=== PATIENT | male | born 1970 | race Caucasian/White ===

== ENCOUNTER 2021-12-04 09:28 | Day surgery (SDC) | payer OTHER ==
[2021-12-02 12:14] VITALS: BMI 35.4
[~2021-12-04 09:28] MED LIST: LACTATED RINGERS 1,000 ML IV SCH
[2021-12-04 10:13] VITALS: TEMP 98
[2021-12-04] MEDS ORDERED: LIDOCAINE 1% INJ 10MG/ML (20 ML MDV) ONE (11:03)
[2021-12-04] MEDS ORDERED: PROPOFOL 10 MG/ML 20 ML VIAL IV ONE (11:03)
--- NOTE | 2021-12-04 11:27 | P.PCN ---
Date of Procedure: 12/04/21 Procedure(s) Performed: BRIEF HISTORY: Patient is a 51-year-old pleasant white male scheduled for an elective colonoscopy as a part of screening for colon rectal neoplasia. PROCEDURE PERFORMED: Colonoscopy with biopsy. PREOPERATIVE DIAGNOSIS: Screening for colon cancer. IV sedation per Anesthesia. PROCEDURE: After informed consent was obtained, the patient, was brought into the endoscopy unit. IV sedation was administered by Anesthesia under continuous monitoring. Digital rectal examination was normal. Initially the Olympus CF-160 flexible video colonoscope was then inserted in the rectum, gradually advanced into the cecum without any difficulty. Careful examination was performed as the scope was gradually being withdrawn. Ileocecal valve and the appendiceal orifice were visualized and appeared normal. Prep was excellent. Mucosa of the cecum, ascending colon, appeared normal. In the transverse colon there was a 3-4 mm polyp that was removed by cold biopsy. Rest of the transverse colon, descending colon, sigmoid colon, and rectum appeared normal. Retroflexion was performed in the rectum and no lesions were seen. The patient tolerated the procedure well. IMPRESSION: 3-4 mm transverse colon polyp status post cold biopsy Rest of the colon appeared normal RECOMMENDATIONS: Findings of this examination were discussed with the patient as well as his family. He was advised to follow with the biopsy results and if it it is an adenoma to have a repeat colonoscopy in 5 years from now.
[2021-12-04 11:49] VITALS: BP 141/85; PULSE 87; RESP 18
== END 2021-12-04 12:15 | disposition home or self-care (01) ==
LOC: ORWHC2ENDO 09:28
PROVIDERS: ATTEND Internal Medicine Gastroenterology
DX: Z12.11 Encounter for screening for malignant neoplasm of colon (principal); D12.3 Benign neoplasm of transverse colon; I10 Essential (primary) hypertension; E78.5 Hyperlipidemia, unspecified; E66.01 Morbid (severe) obesity due to excess calories; Z68.36 Body mass index [BMI] 36.0-36.9, adult; Z90.49 Acquired absence of other specified parts of digestive tract; Z98.890 Other specified postprocedural states; Z79.899 Other long term (current) drug therapy
CPT/HCPCS: 88305; 45380; J2001; J2704

== ENCOUNTER → 2022-10-09 | Outpatient (CLI) | payer OTHER ==
--- NOTE | 2022-10-09 16:21 | P.SLEEP ---
History of Present Illness DATE: 10/09/2022 CONSULTATION/NEW PATIENT EVALUATION HISTORY OF PRESENT ILLNESS/SLEEP-WAKE EVALUATION: 52 year old gentleman had been evaluated in the sleep center for possible obstructive sleep apnea hypopnea syndrome. SLEEP SCHEDULE: Usually sleep schedule from 11 PM to 8 AM on weekdays and from 11 PM to 9 AM on weekend. FALLING ASLEEP: No problems with falling asleep, no TV in bedroom. DURING SLEEP: Patient sleeps in different positions. According to his he has loud snoring and witnessed episodes of stop breathing during the sleep. Positive history of sleep talking and sweating during the sleep. Patient wakes up from sleep up to 4 times with 4 episodes of nocturia. No history of hypnogogical hallucinations, sleep paralysis, or cataplexy. DURING THE DAY/WAKE STATE: In the morning patient wake up tired, falling asleep during the day. Positive history of irritability and depression. [place] sleepiness scale is 5. Usually patient doesn't take naps. PAST MEDICAL HISTORY: Hypertension, hyperlipidemia, gout. PAST SURGICAL HISTORY: Appendectomy, left shoulder surgery for bone problems. MEDICATIONS: Allopurinol 300 mg once a day, amlodipine 5 mg once a day, atorvastatin 10 mg once a day. SOCIAL HISTORY: Positive for smoking for about 35 pack years quit in 2006, presently smoking cigars about 1 cigar a day, alcohol consumption occasional. FAMILY HISTORY: Hypertension, heart problems, snoring. REVIEW OF SYSTEMS: Loud snoring, multiple awakenings from sleep. No fevers. No double vision. No recent chest pain. No shortness of breath. No abdominal pain. No bleeding episodes. No blood in urine. No seizure episodes. PHYSICAL EXAMINATION: GENERAL: A pleasant patient without any distress. VITAL SIGNS: BP 164/103, HR 86, RR 16, weight 265 pounds, height 5 foot 9 inches, body mass index 39.1. HEENT: PERRLA, EOMI. Evaluation of oropharynx showed tongue protrudes midline, low position of soft palate Mallampati 4. NECK: Supple. No JVD. Thyroid is not palpable. 19 inches in circumference. LUNGS: Clear to percussion and to auscultation. Good air exchange. No wheezing or rhonchi. HEART: S1, S2 regular. No murmurs, gallops or rubs. ABDOMEN: Soft and nontender. Bowel sounds are present. No organomegaly appreciated. Obese EXTREMITIES: No clubbing or cyanosis. ROTARY DRILL OPERATOR: Awake, alert, and oriented x3. Cranial nerves 2 to 7 intact. There is no fasciculation or atrophy noted. No focal deficits observed. ASSESSMENT: 1. Loud snoring, witnessed episodes of sleep apneas, multiple awakenings from sleep, extremely low position of soft palate Mallampati 4, wide neck 19 inches in circumference. Obstructive sleep apnea-hypopnea syndrome. 2. Obesity body mass index 39.1. 3. Hypertension. 4. History of gout. 5 hyperlipidemia. 6 . Status post appendectomy. 7. Status post left shoulder surgery for bone problem. PLAN: 1. Polysomnography for evaluation of patient's breathing during sleep. 2. CPAP/BiPAP titration if sleep study confirms obstructive sleep apnea- hypopnea syndrome. 3. Preferable position during sleep on the side. 4. No driving if patient feels any sleepiness. Patient is aware of civil and criminal liability for unsafe driving. 5. Sleep hygiene with regular sleep time for at least 7.5-8 hours. 6. Watching and losing weight. Thank you very much for referring this patient for consultation. Sincerely, Paulo Alberts MD, PhD, FAASM. Diplomat of [place] [employer], Sleep Medicine Board by [employer] of [facility] [place] Past Medical History Past Medical History: Hyperlipidemia, Hypertension Additional Past Medical History / Comment(s): Hx Gout. History of Any Multi-Drug Resistant Organisms: None Reported Past Surgical History: Appendectomy, Orthopedic Surgery Additional Past Surgical History / Comment(s): Shoulder surgery. Past Anesthesia/Blood Transfusion Reactions: No Reported Reaction Past Psychological History: No Psychological Hx Reported Smoking Status: Former smoker Past Alcohol Use History: Occasional Additional Past Alcohol Use History / Comment(s): Smokes cigars. Past Drug Use History: None Reported - Past Family History Mother Family Medical History: No Reported History Medications and Allergies Home Medications Medication Instructions Recorded Confirmed Type Atorvastatin [Lipitor] 10 mg PO HS 12/02/21 12/02/21 History Multivitamins, Thera [Multivitamin 1 tab PO DAILY 12/02/21 12/02/21 History (formulary)] allopurinoL [Zyloprim] 300 mg PO HS 12/02/21 12/02/21 History amLODIPine [Norvasc] 5 mg PO QAM 12/02/21 12/02/21 History lisinopriL 40 mg PO QAM 12/02/21 12/02/21 History Allergies Allergy/AdvReac Type Severity Reaction Status Date / Time No Known Allergies Allergy Verified 12/02/21 12:15 Sleep Note - Sleep Note Sleep Note: Temperature: Pulse Rate: Respiratory Rate: Blood Pressure: SpO2: Height: Weight: BMI: Neck Circumference:
== END ==
LOC: SLEEP 15:55
PROVIDERS: ATTEND Internal Medicine
DX: G47.33 Obstructive sleep apnea (adult) (pediatric) (principal); E66.9 Obesity, unspecified; Z68.39 Body mass index [BMI] 39.0-39.9, adult; I10 Essential (primary) hypertension; Z87.39 Personal history of other diseases of the musculoskeletal system and connective tissue; Z99.89 Dependence on other enabling machines and devices; E78.5 Hyperlipidemia, unspecified; Z90.89 Acquired absence of other organs; Z96.612 Presence of left artificial shoulder joint; Z79.899 Other long term (current) drug therapy

== ENCOUNTER → 2023-01-28 | Outpatient (CLI) | payer OTHER ==
--- NOTE | 2023-01-29 07:57 | MR ---
EXAMINATION TYPE: MR shoulder RT wo con DATE OF EXAM: 01/28/2023 COMPARISON: Outside right shoulder x-ray January 07, 2023 HISTORY: Right shoulder pain, decreased ROM x 6 mos. Hx surgery 14 yrs ago. TECHNIQUE: Multiplanar, multisequence imaging of the right shoulder is performed without contrast. FINDINGS: Rotator Cuff: Increased signal in supraspinatus and infraspinatus tendons. There is partial tearing i nvolving anterior fibers of the supraspinatus tendon measured 9 mm AP diameter sagittal image 6. Incr eased signal and surrounding fluid subscapularis tendon. Rotator cuff muscle bulk is preserved. Acromioclavicular Joint: Evidence of prior distal clavicular resection. Type II downsloping acromion redemonstrated. Glenohumeral Joint: Small joint effusion. No significant spurring. Labrum: The labrum appears grossly intact given limitation of non-arthrogram study. Biceps Tendon: The long head of biceps is in normal location within bicipital groove. Increased sign al intracapsular portion. Bone marrow signal: Some subchondral cystic change involving the humeral head. Other: No additional significant abnormality is appreciated. IMPRESSION: 1. Evidence of distal clavicular resection but a type II downsloping acromion is noted. 2. Tendinosis of the rotator cuff tendons with partial tearing of the supraspinatus tendon. 3. Tendinosis of the long head of biceps tendon.
== END | disposition home or self-care (01) ==
LOC: RADMRIMAIN 08:53
DX: M75.111 Incomplete rotator cuff tear or rupture of right shoulder, not specified as traumatic (principal); M67.813 Other specified disorders of tendon, right shoulder

== ENCOUNTER → 2023-02-18 | Outpatient (CLI) | payer OTHER ==
--- NOTE | 2023-02-18 13:20 | P.PN ---
Subjective DATE: 02/18/2023 FOLLOW UP VISIT. Patient with obstructive sleep apnea hypopnea syndrome return to sleep center for follow-up visit. Recently patient had sleep study which documented obstructive sleep apnea hypopnea syndrome. Patient was initiated on PAP therapy and today is first visit after treatment was started. Patient was able to use PAP equipment every night for the whole night. Patient feels significantly better after starting to use CPAP treatment. I discussed results of sleep studies with patient in details. The patient does not have significant problems with the mask, PAP pressure and humidification. [place] sleepiness scale is 4, which is normal. I checked information from PAP unit. BPAP unit pressure 20/16 cm H2O. Usage is 100 % for more then 4 hours, average 8.9 hours per night. Leak is 34 l/m, which is in acceptable range. Apnea Hypopnea Index is 1.5, which is normal. MEDICATIONS:1. Allopurinol 300 mg once a day 2. Amlodipine 5 mg once a day 3. Atorvastatin 10 mg once a day During physical exam: GENERAL: A pleasant patient without any distress. VITAL SIGNS: BP 154/93, HR 72, RR 18, weight 258.4, temperature 98.1, oxygen saturation at room air 99. HEENT: PERRLA, EOMI.low position of soft palate, Mallapati 4 . NECK: Supple. No JVD. LUNGS: Clear to percussion and to auscultation. Good air exchange. No wheezing or rhonchi. HEART: S1, S2 regular. ABDOMEN: Soft and nontender. Obese EXTREMITIES: No clubbing or cyanosis. DRUPAL DEVELOPER: Awake, alert, and oriented x3. No focal deficit. Impressions: 1. Obstructive sleep apnea-hypopnea syndrome. Patient demonstrated great compliance with treatment, benefiting from treatment. 2. Obesity. 3. History of gout. 4. Hypertension. 5. Hyperlipidemia. 6. Status post appendectomy. 7. Status post left shoulder surgery for bone problems. Plan: 1. Continue using PAP equipment every night for the whole night. 2. To change air filter at least 1-2 times per month. 3. PAP unit should stay lower then position of the head. 4. Advised patient to remove all remaining water from humidifier canister daily and make it dry after each usage. Refill canister with fresh distilled water before each usage. 5. Sleep hygiene with regular time in bed for at least 8 hours. 6. Precautions related to driving. No driving if feel any sleepiness. 7. I will maintain prescription for PAP supplies including mask, tube, filters. 8. Follow up visit in 6 months or earlier if patient has any problems. 9. Watching and losing weight. Thank you very much for allowing me to participate in the management of your patient. Paulo Alberts MD, PhD, FAASM. Diplomat of [place] [employer], Sleep Medicine Board by [place] [employer] Dialysis Biomed Technician of [facility] [place]
== END ==
LOC: 3 N SLEEP 10:43
PROVIDERS: ATTEND Internal Medicine
DX: G47.33 Obstructive sleep apnea (adult) (pediatric) (principal); E66.9 Obesity, unspecified; M10.9 Gout, unspecified; E78.5 Hyperlipidemia, unspecified; I10 Essential (primary) hypertension; Z98.890 Other specified postprocedural states; Z96.612 Presence of left artificial shoulder joint; Z99.89 Dependence on other enabling machines and devices
CPT/HCPCS: 99212

== ENCOUNTER 2023-04-01 11:06 | Day surgery (SDC) | payer OTHER ==
[2023-03-27 12:35] VITALS: BMI 36.6
--- NOTE | 2023-04-01 07:58 | P.HPOR ---
History of Present Illness H&P Date: 04/01/23 Chief Complaint: Right shoulder pain The patient is a 52-year-old left-hand dominant male who presents with right shoulder pain for the past 7 months. He's having pain with overhead activity and at night. He has intermittent popping. He's tried previous stretching exercises along with injections with only partial temporary relief. He notes daily pain that is limiting him. Review of Systems As per HPI Past Medical History Past Medical History: Hyperlipidemia, Hypertension, Osteoarthritis (OA) Additional Past Medical History / Comment(s): Hx Gout. History of Any Multi-Drug Resistant Organisms: None Reported Past Surgical History: Appendectomy, Orthopedic Surgery Additional Past Surgical History / Comment(s): RT Shoulder ,COLONOSCOPY Past Anesthesia/Blood Transfusion Reactions: No Reported Reaction Smoking Status: Former smoker - Past Family History Mother Family Medical History: No Reported History Medications and Allergies Home Medications Medication Instructions Recorded Confirmed Type Atorvastatin [Lipitor] 10 mg PO HS 12/02/21 12/02/21 History Multivitamins, Thera [Multivitamin 1 tab PO DAILY 12/02/21 12/02/21 History (formulary)] allopurinoL [Zyloprim] 300 mg PO HS 12/02/21 12/02/21 History amLODIPine [Norvasc] 5 mg PO QAM 12/02/21 12/02/21 History lisinopriL 40 mg PO QAM 12/02/21 12/02/21 History Allergies Allergy/AdvReac Type Severity Reaction Status Date / Time No Known Allergies Allergy Verified 03/27/23 12:23 Physical Examination - Shoulder right Tenderness with palpation: anterior Pain: with abduction, with forward flexion ROM: forward flexion: 120 degrees ROM: internal rotation: lower lumbar ROM: external rotation: 40 degrees Crepitus with motion: Yes Strength: abduction: 4/5 Strength: external rotation: 5/5 Tests: internal impingement tests: positive, external impingment tests: positive Results The patient is a well-developed well-nourished male approximately 5 foot 10, 262 pounds of endomorphic habitus. HEENT exam is nonfocal, neck is supple. He's tender about the right shoulder anterior subacromial space. Moderate crepitus is noted. Passive forward elevation is 145. Weber, Neer's sign, and speed test are positive. His distal neurovascular appears intact the right upper extremity. - Diagnostic results Shoulder MRI: image reviewed (MRI of the right shoulder shows evidence of a partial-thickness tear involving the supraspinatus along with bicipital tendinosis.) Assessment and Plan Assessment: Right shoulder impingement/partial thickness rotator cuff tear/proximal bicipital tendinosis Plan: I talked with the patient length regarding his condition along treatment options. At this point is having significant pain and weakness despite conservative measures. After thorough discussion he opted to proceed with surgery. We'll proceed with arthroscopic evaluation right shoulder with probable subacromial decompression, rotator cuff repair versus debridement, possible biceps tenotomy versus tenodesis. We will likely perform that as an outpatient procedure. Risks and benefits were discussed at length in layman's terms.
[~2023-04-01 11:06] MED LIST changes: +DEXAMETHASONE SOD PHOSPHATE 4 MG/ML 1 ML VIAL IV ONE; +LIDOCAINE 1% (10MG/ML) FOR IV START INTRADERMA PRN; +ONDANSETRON 4 MG/2 ML VIAL IVP ONE; +SCOPOLAMINE 1 MG/72 HR PATCH TRANSDERM ONE; +droPERidol 5 MG/2 ML VIAL IVP ONE
[2023-04-01] MEDS ORDERED: MIDAZOLAM 2 MG/2 ML VIAL IVP ONE (12:26)
[2023-04-01] MEDS ORDERED: fentaNYL (PF) 50 MCG/1 ML VIAL IVP ONE (12:26)
[2023-04-01] MEDS ORDERED: SUCCINYLCHOLINE CHLORIDE 200 MG/10 ML VIAL IV ONE (12:51)
[2023-04-01] MEDS ORDERED: fentaNYL (PF) 50 MCG/ML 2 ML AMP ONE (12:51)
[2023-04-01] MEDS ORDERED: LIDOCAINE 2% INJ 20 MG/ML (2 ML VIAL) ONE (12:51)
[2023-04-01] MEDS ORDERED: PROPOFOL 10 MG/ML 20 ML VIAL IV ONE (12:51)
[2023-04-01] MEDS ORDERED: MIDAZOLAM 2 MG/2 ML VIAL ONE (12:51)
[2023-04-01] MEDS ORDERED: HYDROmorphone (PF) 1 MG/ML ONE (12:51)
[2023-04-01] MEDS ORDERED: ROPIVACAINE 5 MG/ML 30 ML VIAL ONE (12:51)
[2023-04-01] MEDS ORDERED: PHENYLEPHRINE 10 MG/ML VIAL ONE (12:51)
[2023-04-01] MEDS ORDERED: NEOSTIGMINE 1 MG/ML 10 ML VIAL ONE (12:51)
[2023-04-01] MEDS ORDERED: ROCURONIUM 10 MG/ML (5 ML VIAL) IV ONE (12:51)
[2023-04-01] MEDS ORDERED: GLYCOPYRROLATE 0.2 MG/ML 2 ML VIAL ONE (12:51)
--- NOTE | 2023-04-01 13:53 | P.ANPRN ---
Procedure Note - Anesthesia - Nerve Block Performed Right Interscalene Time Out Performed: Yes (:) Date of Procedure: 04/01/23 Procedure Start Time: Procedure Stop Time: Location of Patient: PreOp Indication: Acute Post-Operative Pain, Requested by Surgeon (Dr Paredes) Sedation Type: Sedate with meaningful contact maintained Preparation: Sterile Prep Position: Supine Catheter: None Needle Types: Pajunk Needle Gauge: 21 Ultrasound used to visualize needle placement: Yes Ultrasound used to observe medication spread: Yes Injectate: 0.5% Ropivacaine (see comment for volume) (20cc) Blood Aspirated: No Pain Paresthesia on Injection Noted: No Resistance on Injection: Normal Image Stored and Saved: Yes Events: Uneventful and Well Tolerated
--- NOTE | 2023-04-01 14:49 | P.OP ---
Date of Procedure: 04/01/23 Preoperative Diagnosis: Right shoulder impingement Postoperative Diagnosis: Same in addition to full-thickness 3 cm rotator cuff tear, high-grade partial- thickness tear intra-articular portion long head of the biceps. Procedure(s) Performed: Right shoulder arthroscopic subacromial decompression/biceps tenodesis/rotator cuff repair Implants: Arthrex 4.75 mm swivel lock anchor 5 [facility] Surgeon: Milton Paredes Ceramics Artist #1: Reanto Guerra Estimated Blood Loss (ml): 10 Pathology: none sent Condition: stable Disposition: PACU Indications for Procedure: The patient is a 52-year-old male presents with progressive right shoulder pain and weakness despite conservative measures. A discussion of the risks and benefits of operative intervention versus continued conservative measures was made with patient. He opted to proceed with surgery. Operative risks to include infection, neurovascular injury, development of blood clots, possible tendon rerupture, possible postoperative stiffness and need for subsequent procedures was discussed. Informed consent was obtained. Operative Findings: As below Description of Procedure: The patient was brought to the operating room, and after induction of general anesthesia was placed in a beachchair position. A preoperative interscalene block was placed for postoperative analgesia. I examined the right shoulder. There was no gross block to passive motion or gross glenohumeral instability. The right upper extremity was prepped and draped in normal fashion. The bony outlines the acromion, distal clavicle, and coracoid process were outlined with a skin marker. The glenohumeral joint was inflated with 50 mL of saline utilizing a spinal needle from posterior approach. A posterior portal was made through a 5 mm skin incision 1 cm medial and inferior to the posterior lateral border time. A blunt trocar was used to easily into the joint. Diagnostic arthroscopy was performed. An anterior portal was made just lateral to the coracoid process entering the joint above the subscapularis tendon. The subscapularis tendon appeared to be intact. Anterior labrum was intact. The inferior recess was inspected. The posterior labrum was intact. There was a high-grade partial-thickness tear of the long head of the biceps involving interarticular portion. It was elected to proceed with tenodesis this at this point. The biceps was captured with a fiber tape using a loop intact technique. This was released from the superior labrum with electrocautery and was allowed to retract to the bicipital groove. It was then tenodesed to the upper border of the bicipital groove utilizing a 4.75 mm swivel lock anchor with good purchase. On inspection the rotator cuff, a full-thickness tear involving the anterior supraspinatus was noted with minimal retraction. The arthroscope was placed into the subacromial space. A lateral portal was made 2 centimeters inferior to the anterior lateral border of the acromion. The rotator cuff was then mobilized with a traction suture. This was then easily brought back to the greater tuberosity. The soft tissue on the undersurface of the acromion was debrided with a motorized shaver and electrocautery clearly defining the anterior medial and lateral borders as well as the distal clavicle. An anterior inferior acromioplasty was performed with a motorized ruchi starting anterolateral, then extending this posteriorly, then extending this medially. I converted to a flat acromion and this was verified in the posterior and lateral viewing portals. An accessory posterior lateral portal was made for viewing. The greater tuberosity was lightly decorticating with a shaver down to a bleeding bony surface. An accessory superior lateral portal was made just off the lateral edge of the acromion for anchor placement. 2 anchors were then placed just off the articular surface with the appropriate starting awl. 4.75 mm anchors preloaded with #2 fiber tape were placed. Good purchase was obtained. These fiber tapes were then passed the rotator cuff with a scorpion suture passer. A lateral row was created crisscrossing these tapes. 4.75 mm swivel lock anchors x2 were placed laterally. Good purchase was obtained. Final arthroscopic view showed adequate compression at the footprint. The arthroscope was then removed. The portals were closed with simple 3-0 nylon sutures. A sterile dressing was applied in addition to an abductor brace. The patient was then awoken from general anesthesia and transferred to recovery room in good condition. Blood loss was estimated at 10 mL. No complications were incurred. Sponge and needle counts were correct in the case. Renato VELASCO assisted and the major components of the case to include arm positioning, anchor placement, and rotator cuff repair.
[2023-04-01 15:04] VITALS: TEMP 96.8
[2023-04-01] MEDS: HYDROmorphone 0.5 MG/0.5 ML SYRINGE IVP PRN ×3 (15:13→15:43)
[2023-04-01] MEDS ORDERED: LACTATED RINGERS 1,000 ML IV ONE (15:44)
[2023-04-01 16:03] VITALS: RESP 16
[2023-04-01] MEDS ORDERED: HYDROcodone/APAP 7.5-325MG 1 EACH TAB ONE (16:09)
[2023-04-01] MEDS ORDERED: HYDROcodone/APAP 7.5-325MG 1 EACH TAB PO ONE (16:11)
[2023-04-01] MEDS ORDERED: hydrALAZINE HCL 20 MG/ML 1 ML VIAL ONE (16:31)
[2023-04-01] MEDS ORDERED: hydrALAZINE HCL 20 MG/ML 1 ML VIAL IVP ONE (16:35)
[2023-04-01 16:56] VITALS: BP 152/91; PULSE 85
== END 2023-04-01 17:18 | disposition home or self-care (01) ==
LOC: OR 11:06
PROVIDERS: ATTEND Orthopaedic Surgery
DX: M75.41 Impingement syndrome of right shoulder (principal); M75.121 Complete rotator cuff tear or rupture of right shoulder, not specified as traumatic; I10 Essential (primary) hypertension; E78.5 Hyperlipidemia, unspecified; Z90.89 Acquired absence of other organs; Z98.890 Other specified postprocedural states; Z87.891 Personal history of nicotine dependence; Z79.899 Other long term (current) drug therapy
CPT/HCPCS: 64415; 29827; 29826; C1713 ×4; C1894; J2250; J0330; J0360; J1100; J2710; J0690; J2405; J3010 ×2; J1170 ×2; J2795; J2704; J2001; J2371

== ENCOUNTER → 2023-08-26 | Outpatient (CLI) | payer OTHER ==
--- NOTE | 2023-08-26 11:21 | P.PN ---
Subjective DATE: 08/26/2023 FOLLOW UP VISIT. Patient with obstructive sleep apnea hypopnea syndrome return to sleep center for follow-up visit. Information from previous visit have been reviewed. Patient is using BPAP equipment every night for the whole night, getting PAP supplies in time. The patient does not have significant problems with the mask, PAP unit and humidification. [place] sleepiness scale is 3, which is normal. I checked information from PAP unit. BPAP unit pressure 20/16 cm H2O. Usage is 100 % for more then 4 hours, average 8.7 hours per night. Leak is 14 l/m, which is in acceptable range. Apnea Hypopnea Index is 0.4, which is normal. MEDICATIONS:1. Atorvastatin 10 mg once a day 2. Amlodipine 5 mg once a day 3. Allopurinol 300 mg once a day 4. Tramadol as needed 5. Olmesartan 40 mg once a day During physical exam: GENERAL: A pleasant patient without any distress. VITAL SIGNS: BP 160/99, HR 69, RR 12 , weight 248.4, temperature 97.9, oxygen saturation at room air 100 % . HEENT: PERRLA, EOMI.low position of soft palate, Mallapati 4 . NECK: Supple. No JVD. LUNGS: Clear to percussion and to auscultation. Good air exchange. No wheezing or rhonchi. HEART: S1, S2 regular. ABDOMEN: Soft and nontender.[] EXTREMITIES: No clubbing or cyanosis. BEHAVIOUR SUPPORT TEACHER: Awake, alert, and oriented x3. No focal deficit. Impressions: 1. Obstructive sleep apnea-hypopnea syndrome. Patient demonstrated great compliance with treatment, benefiting from treatment. 2. Obesity, patient lost 10 pounds comparing with previous visit. 3. Gout. 4. Hypertension. 5. Hyperlipidemia. 6. Status post left shoulder surgery. 7. Status post appendectomy. Plan: 1. Continue using PAP equipment every night for the whole night. 2. To change air filter at least 1-2 times per month. 3. PAP unit should stay lower then position of the head. 4. Advised patient to remove all remaining water from humidifier canister daily and make it dry after each usage. Refill canister with fresh distilled water before each usage. 5. Sleep hygiene with regular time in bed for at least 8 hours. 6. Precautions related to driving. No driving if feel any sleepiness. 7. I will maintain prescription for PAP supplies including mask, tube, filters. 8. Watching and losing weight. 9. Follow up visit in 6 months or earlier if patient has any problems. Thank you very much for allowing me to participate in the management of your patient. Paulo Alberts MD, PhD, FAASM. Diplomat of [place] [employer], Sleep Medicine Board by [place] [employer] Man of [facility] [place]
== END ==
LOC: 3 N SLEEP 10:06
PROVIDERS: ATTEND Internal Medicine
DX: G47.33 Obstructive sleep apnea (adult) (pediatric) (principal); E66.9 Obesity, unspecified; M10.9 Gout, unspecified; I10 Essential (primary) hypertension; E78.5 Hyperlipidemia, unspecified; Z90.49 Acquired absence of other specified parts of digestive tract; Z98.890 Other specified postprocedural states
CPT/HCPCS: 99212

== ENCOUNTER → 2024-07-27 | Outpatient (CLI) | payer OTHER ==
[2024-07-27 11:23] VITALS: BP 157/97; PULSE 78; RESP 16; TEMP 98.9
--- NOTE | 2024-07-27 11:38 | P.PROGSL ---
Subjective DATE: 07/27/2024 FOLLOW UP VISIT. Patient with obstructive sleep apnea hypopnea syndrome return to sleep center for follow-up visit. Information from previous visit have been reviewed. Patient is using PAP equipment every night for the whole night, getting PAP supplies in time. The patient does not have significant problems with the mask, PAP unit and humidification. [place] sleepiness scale is 2, which is normal. I checked information from PAP unit. PAP unit pressure 20/16 cm H2O. Usage is 100% for more then 4 hours, average 8.6 hours per night. Leak is 20 l/m, which is in acceptable range. Apnea Hypopnea Index is 0.5, which is normal. MEDICATIONS have been reviewed, please see below. During physical exam: GENERAL: A pleasant patient without any distress. VITAL SIGNS: Please see below, weight is 253 lbs. HEENT: PERRLA, EOMI.low position of soft palate, Mallapati 4 . NECK: Supple. No JVD. LUNGS: Clear to percussion and to auscultation. Good air exchange. No wheezing or rhonchi. HEART: S1, S2 regular. ABDOMEN: Soft and nontender.[] EXTREMITIES: No clubbing or cyanosis. TRAVEL MANAGER: Awake, alert, and oriented x3. No focal deficit. Impressions: 1. Obstructive sleep apnea-hypopnea syndrome. Patient demonstrated great compliance with treatment, benefiting from treatment. 2. Obesity, BMI 37.2, patient increased weight on 5 pounds comparing with previous visit. 3. Hypertension. 4. Gout. 5. Hyperlipidemia. 6. Status post appendectomy. 7. Status post left shoulder surgery. Plan: 1. Continue using PAP equipment every night for the whole night. 2. Sleep hygiene with regular time in bed for at least 7.5-8 hours 3. PAP unit should stay lower then position of the head. 4. Advised patient to remove all remaining water from humidifier canister daily and make it dry after each usage. Refill canister with fresh distilled water before each usage. 5. Watching and losing weight. 6. Precautions related to driving. No driving if feel any sleepiness. 7. I will maintain prescription for PAP supplies including mask, tube, filters. 8. Follow up visit in 8 months or earlier if patient has any problems. Thank you very much for allowing me to participate in the management of your patient. Paulo Alberts MD, PhD, FAASM. Diplomat of [employer], Sleep Medicine Board by [employer] [facility] [place] Objective - Vital Signs Vital Signs: Vital Signs Temp 98.9 F 07/27/24 11:22 Pulse 78 07/27/24 11:22 Resp 16 07/27/24 11:22 BP 157/97 07/27/24 11:22 Pulse Ox 97 07/27/24 11:22 FiO2 Intake & Output 07/26/24 07/27/24 07/27/24 18:59 06:59 18:59 Weight 114.759 kg Home Medications: Home Medications Medication Instructions Recorded Confirmed Type Atorvastatin [Lipitor] 10 mg PO HS 12/02/21 07/27/24 History Multivitamins, Thera [Multivitamin 1 tab PO DAILY 12/02/21 07/27/24 History (formulary)] allopurinoL [Zyloprim] 300 mg PO HS 12/02/21 07/27/24 History amLODIPine [Norvasc] 5 mg PO QAM 12/02/21 07/27/24 History lisinopriL 40 mg PO QAM 12/02/21 04/01/23 History HYDROcodone/APAP 7.5-325MG [[place] 1 tab PO Q6HR PRN #28 tab 04/01/23 Rx 7.5-325] Olmesartan Medoxomil 40 mg PO DAILY 07/27/24 07/27/24 History traMADol HCL 50 mg PO DAILY PRN 07/27/24 07/27/24 History
== END ==
LOC: 3 N SLEEP 11:12
PROVIDERS: ATTEND Internal Medicine
DX: G47.33 Obstructive sleep apnea (adult) (pediatric) (principal); E66.9 Obesity, unspecified; I10 Essential (primary) hypertension; M10.9 Gout, unspecified; E78.5 Hyperlipidemia, unspecified; Z98.890 Other specified postprocedural states; Z90.49 Acquired absence of other specified parts of digestive tract; Z99.89 Dependence on other enabling machines and devices; Z68.37 Body mass index [BMI] 37.0-37.9, adult; Z79.899 Other long term (current) drug therapy
CPT/HCPCS: 99212

== ENCOUNTER → 2025-03-15 | Outpatient (CLI) | payer OTHER ==
[2025-03-15 14:10] VITALS: BP 157/99; PULSE 75; RESP 16; TEMP 98.4
--- NOTE | 2025-03-15 14:26 | P.PROGSL ---
Subjective DATE: 03/15/2025 FOLLOW UP VISIT. Patient with obstructive sleep apnea hypopnea syndrome return to sleep center for follow-up visit. Information from previous visit have been reviewed. Patient is using PAP equipment every night for the whole night, getting PAP supplies in time. The patient does not have significant problems with the mask, PAP unit and humidification. [place] sleepiness scale is 1, which is perfect. I checked information from PAP unit. BPAP unit pressure 20/16 cm H2O. Usage is 100% for more then 4 hours, average 9 hours per night. Leak is 1 l/m, which is in acceptable range. Apnea Hypopnea Index is 0.3, which is normal. MEDICATIONS have been reviewed, please see below. During physical exam: GENERAL: A pleasant patient without any distress. VITAL SIGNS: Please see below, weight is 253 lbs. HEENT: PERRLA, EOMI.low position of soft palate, [place]ati 4 . NECK: Supple. No JVD. LUNGS: Clear to percussion and to auscultation. Good air exchange. No wheezing or rhonchi. HEART: S1, S2 regular. ABDOMEN: Soft and nontender. Obese EXTREMITIES: No clubbing or cyanosis. SHIPSMITH: Awake, alert, and oriented x3. No focal deficit. Impressions: 1. Obstructive sleep apnea-hypopnea syndrome. Patient demonstrated great compliance with treatment, benefiting from treatment. 2. Obesity, BMI 37.3, weight is the same as during previous visit. 3. Sometimes patient has difficulties with initiating sleep. 4. Hypertension. 5. Gout. 6. Hyperlipidemia. 7. Status post left shoulder surgery. 8. Status post appendectomy. Plan: 1. Continue using PAP equipment every night for the whole night. 2. Sleep hygiene with regular time in bed for 7.5-8 hours. 3. We discussed paradoxical intention psychological technique to help patient to fall asleep. 4. Advised patient to remove all remaining water from humidifier canister daily and make it dry after each usage. Refill canister with fresh distilled water before each usage. 5. Watching and losing weight. 6. Precautions related to driving. No driving if feel any sleepiness. 7. I will maintain prescription for PAP supplies including mask, tube, filters. 8. Follow up visit in 8 months or earlier if patient has any problems. Thank you very much for allowing me to participate in the management of your patient. Paulo Alberts MD, PhD, FAASM. Diplomat of [employer] [employer], Sleep Medicine Board by [employer] [facility] [place] Objective - Vital Signs Vital Signs: Vital Signs Temp 98.4 F 03/15/25 14:09 Pulse 75 03/15/25 14:09 Resp 16 03/15/25 14:09 BP 157/99 03/15/25 14:09 Pulse Ox 99 03/15/25 14:09 FiO2 Intake & Output 03/14/25 03/15/25 03/15/25 18:59 06:59 18:59 Weight 114.759 kg Home Medications: Home Medications Medication Instructions Recorded Confirmed Type Atorvastatin [Lipitor] 10 mg PO HS 12/02/21 07/27/24 History Multivitamins, Thera [Multivitamin 1 tab PO DAILY 12/02/21 07/27/24 History (formulary)] allopurinoL [Zyloprim] 300 mg PO HS 12/02/21 07/27/24 History amLODIPine [Norvasc] 5 mg PO QAM 12/02/21 07/27/24 History lisinopriL 40 mg PO QAM 12/02/21 04/01/23 History HYDROcodone/APAP 7.5-325MG [[place] 1 tab PO Q6HR PRN #28 tab 04/01/23 Rx 7.5-325] Olmesartan Medoxomil 40 mg PO DAILY 07/27/24 07/27/24 History traMADol HCL 50 mg PO DAILY PRN 07/27/24 07/27/24 History
== END ==
LOC: 3 N SLEEP 13:37
PROVIDERS: ATTEND Internal Medicine
DX: G47.33 Obstructive sleep apnea (adult) (pediatric) (principal); E66.9 Obesity, unspecified; I10 Essential (primary) hypertension; M10.9 Gout, unspecified; E78.5 Hyperlipidemia, unspecified; Z96.612 Presence of left artificial shoulder joint; Z68.37 Body mass index [BMI] 37.0-37.9, adult; Z90.49 Acquired absence of other specified parts of digestive tract
CPT/HCPCS: 99212